=== PATIENT | female | born 1950 | race African-American/Black ===

== ENCOUNTER 2017-08-06 06:49 | Day surgery (SDC) | payer MEDICARE, OTHER ==
[~2017-08-06] VITALS: Ht 177.8 cm; Wt 66.3 kg
[~2017-08-06 06:49] MED LIST: ALPR0.5T8 PO; CITA10TA68 PO; IBUP-2071 PO; IPRA3AMP4 NEB; LEVO500 PO; MELO-107 PO; PRED20 PO; PROME5L PO; SODIUM CHLORIDE 0.9% 1,000 ML IV ONE; [UNRECOGNIZED DRUG - CODE] PO
[2017-08-06] MEDS ORDERED: LIDOCAINE HCL 2% 30 ML JELLY TP ONE (06:50)
[2017-08-06] MEDS ORDERED: BENZOCAINE 20% 50 MCG/SPRAY 57 GM TP ONE (06:50)
[2017-08-06] MEDS ORDERED: ALBUTEROL SULFATE 2.5 MG/0.5 ML NEB SOLUTION NEB ONE ×2 (06:50→09:17)
[2017-08-06] MEDS ORDERED: LIDOCAINE HCL 4% 50 ML SOLUTION TP ONE (06:50)
[2017-08-06] MEDS ORDERED: SODIUM CHLORIDE 0.9% 1,000 ML IV ONE (07:12)
[2017-08-06] MEDS ORDERED: MIDAZOLAM HCL 2 MG/2 ML VIAL ONE (08:09)
[2017-08-06] MEDS ORDERED: FentaNYL CITRATE-PF 100 MCG/2 ML VIAL ONE (08:09)
[2017-08-06] MEDS ORDERED: ALBU8HFA IH (08:14)
[2017-08-06] MEDS ORDERED: BUDE10.2 IH (08:14)
[2017-08-06] MEDS ORDERED: BUSP10TA23 PO (08:14)
[2017-08-06] MEDS ORDERED: MONT10TA21 PO (08:14)
[2017-08-06] MEDS ORDERED: ESCI10TA PO (08:14)
[2017-08-06] MEDS ORDERED: DICL2100G TP (08:14)
[2017-08-06] MEDS ORDERED: FAMO20 PO (08:14)
[2017-08-06] MEDS ORDERED: FLUT16H NASAL (08:14)
[2017-08-06] MEDS ORDERED: TRAZ-144 PO (08:14)
[2017-08-06] MEDS ORDERED: PROMVCC5L PO (08:15)
[2017-08-06] MEDS ORDERED: MethylPREDNISolone SOD SUCC 125 MG/2 ML VIAL IVP ONE (08:30)
[2017-08-06] MEDS ORDERED: ALEN35TA32 PO (08:30)
[2017-08-06] MEDS ORDERED: MethylPREDNISolone SOD SUCC 125 MG/2 ML VIAL ONE (08:53)
[2017-08-06] MEDS ORDERED: PROMETHAZINE HCL/CODEINE 6.25-10MG/5ML SYRUP UDCUP PO ONE (09:15)
[2017-08-06] MEDS ORDERED: IPRATROPIUM BROMIDE 0.5 MG/2.5 ML NEB SOLUTION NEB ONE (09:17)
[2017-08-06] MEDS ORDERED: OXYGEN THERAPY IH SCH (20:00)
== END 2017-08-06 09:55 | disposition home or self-care (01) ==
LOC: SURGERY 06:49
PROVIDERS: ATTEND Internal Medicine Critical Care Medicine
DX: J38.4 Edema of larynx (principal); B37.0 Candidal stomatitis; J44.9 Chronic obstructive pulmonary disease, unspecified; F41.9 Anxiety disorder, unspecified; Z88.0 Allergy status to penicillin; F17.210 Nicotine dependence, cigarettes, uncomplicated; Z90.49 Acquired absence of other specified parts of digestive tract; Z90.710 Acquired absence of both cervix and uterus; Z98.890 Other specified postprocedural states; Z79.899 Other long term (current) drug therapy; Z85.42 Personal history of malignant neoplasm of other parts of uterus; Z86.79 Personal history of other diseases of the circulatory system
CPT/HCPCS: 31623; 31624; 71010; 87015 ×2; 87070; 87101; 87205; 87220; 88108; 88312; J2250; J2930; J3010; J7030